=== PATIENT | male | born 1970 | race Caucasian/White ===

== ENCOUNTER 2018-10-06 14:23 | Outpatient (CLI) | payer MEDICARE, BC, MEDICAID ==
--- NOTE | 2018-10-06 15:23 | RAD ---
EXAM: ABDOMEN TWO VIEWS: 10/06/18 HISTORY: Constipation for four days. Altered bowel function. FINDINGS: There is some gas and fecal material throughout the colon. The right hemidiaphragm is not completely included on the upright study. No evidence for large or small bowel obstruction, overt calculus. IMPRESSION: Solid fecal material throughout the colon, evidence for constipation. Right hemidiaphragm is not comp letely included on the upright study. No overt calculus. POS: RRE
== END 2018-10-06 14:24 | disposition home or self-care (01) ==
LOC: BICRAD 14:23
PROVIDERS: ATTEND Physician Assistant Medical
DX: R19.4 Change in bowel habit (principal); K59.00 Constipation, unspecified
CPT/HCPCS: 74019